=== PATIENT | female | born 1960 | race Hispanic/Latino ===

== ENCOUNTER 2018-01-13 09:32 | Outpatient (CLI) | payer BC ==
--- NOTE | 2018-01-13 11:20 | RAD ---
CERVICAL SPINE 5 VIEWS: DATE: 01/13/18. COMPARISON: None. HISTORY: Bilateral shoulder pain with hand numbness, cervical radiculopathy. FINDINGS: Open-mouth odontoid view demonstrates a normal-appearing dens in C1-2 articulation. The frontal imag ing demonstrates normal vertebral body height and alignment. Lateral neutral imaging demonstrates no anterolisthesis or retrolisthesis. There is mild disk space narrowing at C4-5, C5-6, and C6-7 with anterior osteophyte formation at C5-6 and C6-7. With flexion and extension imaging, there is no ante rolisthesis or retrolisthesis seen. No prevertebral soft tissue swelling. IMPRESSION: Mild midcervical spine degenerative disk disease. POS: [facility]
--- NOTE | 2018-01-13 11:22 | RAD ---
LUMBAR SPINE 4 VIEWS: Date: 01/13/18 HISTORY: Lumbar radiculopathy. Low back pain radiating to right leg and hip. COMPARISON: None. FINDINGS: Five lumbar-type vertebral bodies. Vertebral body height is maintained. No fracture. In the neutral p osition, no spondylolisthesis. No abnormal motion upon flexion or extension. IMPRESSION: No significant spondylolisthesis. POS: [facility]
--- NOTE | 2018-01-13 11:43 | MRI ---
CERVICAL SPINE MRI WITHOUT CONTRAST: Date: 01/13/18 HISTORY: Cervical radiculopathy. Bilateral shoulder pain with hand numbness. COMPARISON: None. TECHNIQUE: Cervical spine MRI is performed without intravenous Gadolinium administration. Multisequential, multi planar imaging is performed. FINDINGS: Straightening of normal cervical lordosis is presumed to be positional. No significant STIR hyperinte nsity to suggest edema of the vertebral bodies or to suggest ligamentous injury. Visualized brain parenchyma, cervicomedullary junction, cervical cord, and the upper thoracic cord talbot ve a normal size and signal intensity. C2-C3: No significant disc osteophyte complex. No significant central canal stenosis. Foramina are patent. C3-C4: Central disc osteophyte complex without significant central canal stenosis. Minimal right foraminal n arrowing due to degenerative change of the uncovertebral joint. Left foramen is patent. C3-C5: Central disc osteophyte complex abuts the thecal sac. Minimal mass effect upon the cervical cord. No T2 hyperintensity of the cord. Mild central canal stenosis. Minimal right foraminal narrowing due to degenerative change of the uncovertebral joint. Left neural foramen is patent. C5-C6: Broad based disc osteophyte complex abuts the thecal sac. Minimal central canal stenosis. Degenerativ e changes in the right uncovertebral joint result in mild right foraminal narrowing. Left neural fora men is patent. C6-C7: No significant disc osteophyte complex. No significant central canal stenosis. Neural foramina are pa tent bilaterally. C7-T1: No significant disc osteophyte complex. No significant central canal stenosis or foraminal narrowing. IMPRESSION: Cervical spine degenerative changes as defined above. There is no significant central canal stenosis or foraminal narrowing. POS: [facility]
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
== END 2018-01-13 09:33 | disposition home or self-care (01) ==
LOC: TBSIIMAG 09:32
PROVIDERS: ATTEND Physician Assistant Surgical
DX: M50.120 Mid-cervical disc disorder, unspecified level (principal); M51.16 Intervertebral disc disorders with radiculopathy, lumbar region; M47.22 Other spondylosis with radiculopathy, cervical region
CPT/HCPCS: 72050; 72110; 72141; 72148

== ENCOUNTER 2021-01-26 13:22 | Outpatient (CLI) | payer BC | END 2021-01-26 13:23 | disposition home or self-care (01) | LOC: BICMRI 13:22 | PROVIDERS: ATTEND Specialist | DX: M51.16 Intervertebral disc disorders with radiculopathy, lumbar region (principal); M47.22 Other spondylosis with radiculopathy, cervical region | CPT/HCPCS: 72148 ==

== ENCOUNTER 2021-02-05 09:43 | Outpatient (CLI) | payer BC | END 2021-02-05 09:44 | disposition home or self-care (01) | LOC: BICRAD 09:43 | PROVIDERS: ATTEND Nurse Practitioner Family | DX: M47.22 Other spondylosis with radiculopathy, cervical region (principal) | CPT/HCPCS: 72050 ==

== ENCOUNTER 2021-06-14 12:34 | Outpatient (CLI) | payer BC | END 2021-06-14 12:35 | disposition home or self-care (01) | LOC: TBSIIMAG 12:34 | PROVIDERS: ATTEND Surgery | DX: M54.2 Cervicalgia (principal); M54.9 Dorsalgia, unspecified; M47.812 Spondylosis without myelopathy or radiculopathy, cervical region | CPT/HCPCS: 72141; 72146 ==

== ENCOUNTER 2025-03-18 08:28 | Outpatient (CLI) | payer BC | END 2025-03-18 08:29 | disposition home or self-care (01) | LOC: ULT 08:28 | PROVIDERS: ATTEND Internal Medicine Gastroenterology | DX: Z12.11 Encounter for screening for malignant neoplasm of colon (principal); R10.11 Right upper quadrant pain; R13.10 Dysphagia, unspecified; K76.0 Fatty (change of) liver, not elsewhere classified | CPT/HCPCS: 76705 ==